=== PATIENT | male | born 1980 | race Caucasian/White ===

== ENCOUNTER → 2016-03-08 | Outpatient (CLI) | payer BC ==
[2016-03-08 18:04] VITALS: BP 132/82
--- NOTE | 2016-03-08 18:04 | Urgent Care T Sheet Gen (E) ---
Intake General Temperature (Fahrenheit): 98.0 Pulse: 108 Blood Pressure Systolic: 132 Blood Pressure Diastolic: 82 Respirations: 20 SPO2: 98 Description of Symptoms Patient presents with illness since Sunday. Notes vomiting and diarrhea. Diarrhea is watery. No fever. Last loose stool was at 2pm. Patient is hoping to return to work tomorrow but needs a note. Been taking Pepto which helps. Respiratory Constitutional Symptoms: No Fever, Malaise Respiratory: No symptoms reported Cardiovascular: No symptoms reported Gastrointestinal/Abdominal: Diarrhea Nausea Vomiting All Other Systems Reviewed Remaining Systems: All other systems reviewed with negative findings Physical Exam Physical Exam General Appearance: WD/WN No apparent distress Eyes, Ears, Nose, Throat Ex: TMs normal Pharynx normal (moist membranes) Neck Exam: SuppleNo Lymphadenopathy Respiratory Exam: Lungs clear Normal breath sounds Cardiovascular Exam: Regular rate, rhythm GI/ Exam: Normal bowel sounds Tenderness (umbilical region)No Guarding, No Rebound Departure Urgent Care Impression Impression: Primary Impression: Gastroenteritis Departure Disposition: 01 HOME OR SELF-CARE Condition: Stable Additional Instructions: Patient most likely has a viral gastroenteritis. BRAT diet. Sips and chips. May continue with the Pepto as needed. Note was given for work. Return as needed Patient understands DC instructions. All questions were answered. End of report . BG CASTILLO Mar 08, 2016 18:04
== END ==
LOC: MHUC 17:31
PROVIDERS: ATTEND Physician Assistant
DX: K52.9 Noninfective gastroenteritis and colitis, unspecified (principal)
CPT/HCPCS: 99213